=== PATIENT | male | born 1975 | race Caucasian/White ===

== ENCOUNTER 2018-05-01 09:47 | Emergency (ER) | payer SELFPAY ==
[2018-05-01 10:15] VITALS: RESP 16; TEMP 96.8; O2SAT 100
[2018-05-01 11:13] VITALS: BP 126/71; PULSE 90
== END 2018-05-01 11:28 | disposition home or self-care (01) | DRG 395 ==
LOC: ED 09:47
DX: K40.20 Bilateral inguinal hernia, without obstruction or gangrene, not specified as recurrent (principal)
CPT/HCPCS: 99282

== ENCOUNTER 2018-06-01 11:38 | Emergency (ER) | payer SELFPAY ==
[2018-06-01 12:00] VITALS: RESP 18; TEMP 97.7
[2018-06-01 12:14] LABS: APPEARANCE,URINE Cloudy; BILIRUBIN,URINE NEGATIVE (NEGATIVE); COLOR,URINE Red; GLUCOSE, URINE (UA) NEGATIVE (NEGATIVE); KETONES,URINE NEGATIVE (NEGATIVE); LEUKOCYTE ESTERASE ,URINE NEGATIVE (NEGATIVE); NITRATE,URINE NEGATIVE (NEGATIVE); PH,URINE 6.5
[2018-06-01 12:17] LABS: OCCULT BLOOD,URINE 3+ (NEG-TRACE)
[2018-06-01 12:18] LABS: BACTERIA 1+ (< 1+); CRYSTALS NEGATIVE (0-3 AVE/HPF); RBC,URINE TNTC (0-3AV/HPF)
[2018-06-01 12:28] LABS: BASOPHILS % (AUTO) 2 % (0-3); EOSINOPHILS % (AUTO) 4 % (0-9); HEMATOCRIT 44 % (39-53); HEMOGLOBIN 14.2 gm/dl (13.5-17.7); LYMPHOCYTES % (AUTO) 34.9 % (10-50); MEAN CORPUSCULAR HEMOGLOBIN 30.8 pg (27.0-32.0); MEAN CORPUSCULAR HGB CONC 32.3 gm/dl (32.0-36.0); MEAN CORPUSCULAR VOLUME 95 fL (80-100); MONOCYTES % (AUTO) 9.4 % (0-12)
[2018-06-01 12:33] LABS: CALCIUM 8.7 mg/dl (8.5-10.1); CARBON DIOXIDE 30.2 mEq/L (21-32); CREATININE 1.13 mg/dl (0.80-1.30); POTASSIUM 4.2 mMol/L (3.5-5.1)
[2018-06-01 14:39] VITALS: BP 128/77; PULSE 70; O2SAT 98
== END 2018-06-01 14:15 | disposition home or self-care (01) | DRG 694 ==
LOC: ED 11:38
DX: N20.0 Calculus of kidney (principal); M54.5 Low back pain
CPT/HCPCS: 74177; 80048; 81001; 85025; 99283; Q9967